=== PATIENT | male | born 1985 | race Hispanic/Latino ===

== ENCOUNTER 2017-07-03 20:50 | Emergency (ER) | payer BC, OTHER ==
[2017-07-03 21:06] LABS: Bilirubin Negative (Negative); Blood, Urine Negative (Negative); Clarity CLEAR (Clear); Glucose, Urine (Dipstick) Negative (Negative); Leukocyte Negative (Negative); Nitrite Negative (Negative); Protein, Urine (Dipstick) Negative (Neg-Trace); Specific Gravity, Urine 1.026 (1.002-1.036); Urobilinogen 0.2 mg/dL (0.2-1.0); pH, Urine 5.5 (5.0-9.0)
[2017-07-03 21:53] LABS: #Basophils 0.1 thou/uL (0.0-0.2); #Eosinphils 0.1 thou/uL (0.0-0.7); #Lymphocytes 2.9 thou/uL (1.20-3.40); #Monocytes 0.6 thou/uL (0.11-0.59); #Neutrophils 6.1 thou/uL (1.40-6.50); %Basophils 0.7 % (0.0-1.0); %Lymphocytes 29.6 % (21.0-51.0); %Monocytes 6.4 % (0.0-10.0); %Neutrophils 62.3 % (42.0-75.0); Hemoglobin 14.9 g/dL (14.0-18.0); Mean Corpuscular HGB CONC 34.5 g/dL (32.0-36.0); Mean Corpuscular Hemoglobin 32.1 pg (27.0-31.0); Mean Corpuscular Volume 93.1 fl (80.0-94.0); Mean Platelet Volume 7.7 fL (7.4-10.4); Platelet Count 297 thou/uL (130-400); RBC Distribution Width 10.9 % (11.5-14.5); Red Blood Cell (RBC) Count 4.63 mill/uL (4.70-6.10); White Blood Cell (WBC) Count 9.8 thou/uL (4.8-10.8)
[2017-07-03 22:12] LABS: ALT (SGPT) 15 U/L (8-55); AST (SGOT) 15 U/L (5-34); Albumin 4.4 g/dL (3.5-5.0); Alkaline Phosphatase 76 U/L (40-150); Anion Gap 14 mmol/L (10-20); BUN (Urea Nitrogen) 16 mg/dL (8.9-20.6); Bilirubin, Total 0.7 mg/dL (0.2-1.2); Calc. Creatinine Clearance 0 mL/min (70-130); Calcium 9.4 mg/dL (7.8-10.44); Carbon Dioxide 24 mmol/L (22-29); Chloride 105 mmol/L (98-107); Estimated GFR-MDRD Greater than 90; Globulin 2.7 g/dL (2.4-3.5); Glucose 94 mg/dL (70-105); Potassium 4.3 mmol/L (3.5-5.1); Protein, Total 7.1 g/dL (6.0-8.3); Sodium 139 mmol/L (136-145)
[2017-07-03] MEDS ORDERED: methylPREDNISolone Sod Succ/PF 125 MG/2 ML VIAL ONE (22:54)
[2017-07-03] MEDS ORDERED: Ketorolac Tromethamine 30 MG/ML VIAL ONE (22:54)
== END 2017-07-03 23:58 | disposition home or self-care (01) ==
LOC: ERS 20:50
DX: S39.012A Strain of muscle, fascia and tendon of lower back, initial encounter (principal); F32.9 Major depressive disorder, single episode, unspecified; X50.9XXA Other and unspecified overexertion or strenuous movements or postures, initial encounter
CPT/HCPCS: 36415; 80053; 81003; 85025; 96374; 96375; J1885; J2930

== ENCOUNTER 2018-04-25 18:54 | Emergency (ER) | payer OTHER, SELFPAY ==
[~2018-04-25 18:54] MED LIST: ISOVUE-370 76%-LOCM 1 ML ONE
[2018-04-25 20:05] LABS: #Eosinphils 0.1 thou/uL (0.0-0.7); #Lymphocytes 2.4 thou/uL (1.20-3.40); #Monocytes 0.4 thou/uL (0.11-0.59); #Neutrophils 5.1 thou/uL (1.40-6.50); %Basophils 0.2 % (0.0-1.0); %Eosinophils 0.7 % (0.0-10.0); %Monocytes 5.4 % (0.0-10.0); %Neutrophils 63.8 % (42.0-75.0); Hemoglobin 15.7 g/dL (14.0-18.0); Mean Corpuscular HGB CONC 34.8 g/dL (32.0-36.0); Mean Corpuscular Hemoglobin 31.8 pg (27.0-31.0); Mean Corpuscular Volume 91.4 fL (78.0-98.0); Mean Platelet Volume 7.9 fL (7.4-10.4); Platelet Count 311 thou/uL (130-400); RBC Distribution Width 10.8 % (11.5-14.5); Red Blood Cell (RBC) Count 4.93 mill/uL (4.70-6.10)
[2018-04-25 20:46] LABS: ALT (SGPT) 15 U/L (8-55); AST (SGOT) 17 U/L (5-34); Albumin 4.6 g/dL (3.5-5.0); Alkaline Phosphatase 66 U/L (40-150); Anion Gap 15 mmol/L (10-20); BUN (Urea Nitrogen) 5 mg/dL (8.9-20.6); Bilirubin, Total 1.1 mg/dL (0.2-1.2); Calc. Creatinine Clearance 0 mL/min (70-130); Calcium 9.3 mg/dL (7.8-10.44); Carbon Dioxide 23 mmol/L (22-29); Chloride 105 mmol/L (98-107); Estimated GFR-MDRD Greater than 90; Glucose 92 mg/dL (70-105); Lipase 7 U/L (8-78); Potassium 3.8 mmol/L (3.5-5.1); Protein, Total 7.6 g/dL (6.0-8.3); Sodium 139 mmol/L (136-145)
[2018-04-25] MEDS ORDERED: Morphine 4 MG/ML VIAL ONE (21:11)
[2018-04-25] MEDS ORDERED: Ketorolac Tromethamine 30 MG/ML VIAL ONE (21:11)
--- NOTE | 2018-04-25 21:50 | ULT ---
RIGHT UPPER QUADRANT ULTRASOUND: 04/25/2018 HISTORY: Right upper quadrant pain and constipation. COMPARISON: None. TECHNIQUE: Multiplanar sorenson-scale sonographic imaging of the right upper quadrant is provided. FINDINGS: The pancreas is obscured by bowel gas. No focal liver lesion or intrahepatic biliary dilatation is n oted. No gallbladder wall thickening or pericholecystic fluid. No gallstones are noted. The broadloom weaver r eports a negative Multani sign. The right kidney measures 9.2 cm in craniocaudal dimension and demons trates no evidence for stone, hydronephrosis, or mass lesion. The gallbladder wall is normal in [place], measuring 2 mm. IMPRESSION: No evidence for cholelithiasis, cholecystitis, or biliary dilatation. POS: [facility]
[2018-04-25 22:19] LABS: Bilirubin Negative (Negative); Blood, Urine Negative (Negative); Clarity CLEAR (Clear); Glucose, Urine (Dipstick) Negative (Negative); Leukocyte Negative (Negative); Nitrite Negative (Negative); Protein, Urine (Dipstick) Negative (Neg-Trace); Specific Gravity, Urine 1.012 (1.002-1.036)
--- NOTE | 2018-04-25 22:51 | CT ---
CT ABDOMEN AND PELVIS: 04/25/2018 HISTORY: Kidney stones. Right upper quadrant pain. COMPARISON: 07/07/2010 TECHNIQUE: Axial CT imaging at 5 mm intervals, from the lung bases through the pubic symphysis, with IV contrast . Coronal reformatted imaging obtained. FINDINGS: The imaged lung bases are grossly unremarkable. No free intraperitoneal air or fluid is seen. The liver, gallbladder, spleen, pancreas, adrenal glands, and kidneys are unremarkable. No evidence for bowel inflammatory change. Bowel obstruction is seen. The vascular structures are patent. No lymphadenopathy is noted. No acute osseous abnormality. Bilateral L5 pars defects are noted. The appendix is visualized and appears within normal limits. IMPRESSION: No acute findings. POS: [facility]
== END 2018-04-25 23:09 | disposition home or self-care (01) ==
LOC: ERS 18:54
DX: K29.70 Gastritis, unspecified, without bleeding (principal); F32.9 Major depressive disorder, single episode, unspecified
CPT/HCPCS: 36415; 74177; 76705; 80053; 81003; 83690; 85025; 96374; 96375; J1885; J2270

== ENCOUNTER 2018-10-16 03:48 | Emergency (ER) | payer SELFPAY ==
[2018-10-16] MEDS ORDERED: Lidocaine 1% w/Epinephrine 1:100K 20 ML VIAL ONE (04:00)
[2018-10-16] MEDS ORDERED: Ondansetron ODT 4 MG TAB ONE (04:18)
--- NOTE | 2018-10-16 07:38 | CT ---
CT OF HEAD NONCONTRAST: INDICATION: Fall with head injury and pain. FINDINGS: Ventricular system is normal size. There is no acute intracranial hemorrhage, mass effect, or midlin e shift. The calvarium is intact. Minimal mucosal thickening of the paranasal sinuses is seen. 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 IMPRESSION: No acute intracranial hemorrhage or mass effect. POS: [facility]
== END 2018-10-16 05:30 | disposition home or self-care (01) ==
LOC: ERS 03:48
DX: S01.01XA Laceration without foreign body of scalp, initial encounter (principal); F32.9 Major depressive disorder, single episode, unspecified; V87.8XXA Person injured in other specified noncollision transport accidents involving motor vehicle (traffic), initial encounter
CPT/HCPCS: 12002; 70450; J2001; Q0162

== ENCOUNTER 2021-11-27 17:15 | Emergency (ER) | payer SELFPAY ==
[2021-11-27 20:00] LABS: #Basophils 0.1 thou/uL (0.0-0.2); #Eosinphils 0.1 thou/uL (0.0-0.7); #Lymphocytes 1.8 thou/uL (1.20-3.40); #Monocytes 0.7 thou/uL (0.11-0.59); #Neutrophils 4.6 thou/uL (1.40-6.50); %Basophils 0.8 % (0.0-1.0); %Eosinophils 0.8 % (0.0-10.0); %Lymphocytes 25.3 % (21.0-51.0); %Neutrophils 64.1 % (42.0-75.0); Hemoglobin 16.9 g/dL (14.0-18.0); Mean Corpuscular HGB CONC 33.7 g/dL (32.0-36.0); Mean Corpuscular Hemoglobin 30.9 pg (27.0-31.0); Mean Corpuscular Volume 91.6 fL (78.0-98.0); Mean Platelet Volume 7.8 fL (7.4-10.4); Platelet Count 282 thou/uL (130-400); RBC Distribution Width 10.9 % (11.5-14.5); Red Blood Cell (RBC) Count 5.48 mill/uL (4.70-6.10); White Blood Cell (WBC) Count 7.2 thou/uL (4.8-10.8)
[2021-11-27 20:04] LABS: Bacteria/HPF None Seen HPF (None Seen); Bilirubin Negative (Negative); Blood, Urine Negative (Negative); Clarity Clear (Clear); Glucose, Urine (Dipstick) Normal (Negative); Ketone, Urine Negative (Negative); Leukocyte Negative Leu/uL (Negative); Nitrite Negative (Negative); Protein, Urine (Dipstick) 50 mg/dL (Neg-Trace); RBC/HPF 0-3 HPF (0-3); Specific Gravity, Urine 1.036 (1.002-1.036); Squamous Epithelial None Seen HPF (0-3); Urobilinogen Normal mg/dL (Less than 2); WBC/HPF 0-3 HPF (0-3)
[2021-11-27 20:19] LABS: ALT (SGPT) 23 U/L (8-55); AST (SGOT) 31 U/L (5-34); Albumin 4.7 g/dL (3.5-5.0); Alkaline Phosphatase 95 U/L (40-110); Anion Gap 17 mmol/L (10-20); BUN (Urea Nitrogen) 14 mg/dL (8.9-20.6); Bilirubin, Total 0.7 mg/dL (0.2-1.2); Calc. Creatinine Clearance 0 mL/min (70-130); Calcium 9.4 mg/dL (7.8-10.44); Carbon Dioxide 22 mmol/L (22-29); Chloride 103 mmol/L (98-107); Estimated GFR 106; Globulin 3.4 g/dL (2.4-3.5); Glucose 109 mg/dL (70-105); Potassium 3.4 mmol/L (3.5-5.1); Protein, Total 8.1 g/dL (6.0-8.3); Sodium 139 mmol/L (136-145)
[2021-11-27 20:47] LABS: CK (CPK) 68 U/L (30-200); Lipase 12 U/L (8-78)
== END 2021-11-27 22:05 | disposition home or self-care (01) ==
LOC: ERS 17:15
DX: K52.9 Noninfective gastroenteritis and colitis, unspecified (principal); E86.0 Dehydration
CPT/HCPCS: 36415; 80053; 81003; 81015; 82550; 83605; 83690; 84484; 85025; 93005; 96360

== ENCOUNTER 2024-02-28 21:33 | Emergency (ER) | payer SELFPAY ==
[2024-02-29] MEDS ORDERED: Ondansetron ODT 4 MG TAB ONE (01:08)
[2024-02-29] MEDS ORDERED: Morphine 4 MG/ML VIAL ONE (01:08)
[2024-02-29] MEDS ORDERED: Lidocaine 4% Patch ONE (01:09)
[2024-02-29] MEDS ORDERED: HYDROcodone/Acetaminophen 10/325 mg Tablet ONE (02:19)
== END 2024-02-29 02:24 | disposition home or self-care (01) ==
LOC: ERS 21:33
DX: S22.41XA Multiple fractures of ribs, right side, initial encounter for closed fracture (principal); Y93.61 Activity, american tackle football
CPT/HCPCS: 71250; 94799; 96372; J2272; Q0162